=== PATIENT | male | born 2000 | race Caucasian/White ===

== ENCOUNTER 2024-09-01 16:21 | Emergency (ER) | payer OTHER, SELFPAY ==
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
[2024-09-01 16:36] VITALS: BP 115/63; PULSE 80; RESP 16; TEMP 36.7; O2SAT 100
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
--- NOTE | 2024-09-01 18:53 | PC.NURSE ---
1852- Called patient and spoke with patient to inform him his Lumbar Spine X-rays came back normal. Follow the Discharge directions that were given at discharge for muscular discomfort.
== END 2024-09-01 18:45 | disposition home or self-care (01) ==
PROVIDERS: Emergency Provider Nurse Practitioner Family; PCP Physician Assistant
DX: M54.50 Low back pain, unspecified (principal); V89.2XXA Person injured in unspecified motor-vehicle accident, traffic, initial encounter
CPT/HCPCS: 72100; 99203; G0463